=== PATIENT | male | born 1955 ===

== ENCOUNTER 2020-07-20 14:37 | Inpatient (IN) | payer MEDICAID ==
--- NOTE | 2020-07-21 09:51 | History and Physical Report ---
GP History & Physical - History of Present Illness Date of admission: 07/20/20 Date of Examination: 07/21/20 Reason for Admission: Danger to self, Failure of Outpatient Treatment History of Present Illness: Per Admission Note: Patient admitted to to [facility] for protective oversight for emergency stabilization of acute psychiatric crisis. Patient arrived on the unit on 07/20/20 @ 2200. He was escorted by security. Patient was brought to [facility] by his sister due to his threatening her. Patient has a history of paranoid schizophrenia. He has recently been non-compliant with his medications. Patient reports AH but denies si/hi/ah/vh. It is reported he is self harming by hitting his head on marte. During my assessment of 65y/o Kan Leahy, he was sitting in the dayroom off to himself. The patient is a poor historian and has poor insight. He says "he's not feeling good." He was unable to give insight as to why he wasn't feeling well. He is mumbling at times, looking around, and difficult to follow. When asking the patient about his psych history he was unable to tell me. I mentioned schizophrenia to him, he states "I don't know anything about schizophrenia." He says "I didn't take my meds." He then starts mumbling about something I can't make out. The patient denies SI/HI. He does verbalize hallucinations. When asked what were they the patient states "just hearing stuff." He denies illicit drug use, or alcohol. PAST PSYCHIATRIC HISTORY: Diagnoses: schizophrenia Suicide attempts or Self-harm behavior: Denies Prior psychiatric hospitalizations: Denies Substance Abuse history: Denies Previous psychiatric medications tried: Denies Outpatient treatment: Denies PAST MEDICAL HISTORY: None reported Family Psychiatric History: None reported or documented SOCIAL HISTORY Marital Status: single Living Arrangements: sister Employment Status: disabled Access to guns/weapons: Denies Education: History of Abuse: Denies Legal History: Denies REVIEW OF SYSTEMS Constitutional: Negative for weight loss ENT: Negative for stridor Respiratory: Negative for cough or hemoptysis All other systems reviewed and are negative MENTAL STATUS EXAMINATION General Appearance and Behavior: Age appropriate, good hygiene, not wearing appropriate clothes, fair eye contact, calm and cooperative Cooperation: Participating, uncooperative at times Psychomotor Behavior: Psychomotor normal Mood: not good Affect and affective range: Congruent with stated mood Thought Process: illocigal, responding to internal stimuli Speech: mumbling Thought Content Suicidal Ideation: Denies Homicidal Ideation: Denies Hallucinations: auditory Delusions: None elicited Impulse Control: Limited Insight and Judgment: limited insight and judgment Memory: Limited Attention: Divided attention impaired Orientation: A/o x 3 Assessment and Plan (1) Schizophrenia Current Visit: Yes Status: Acute Treatment Plan Patient admitted for inpatient psychiatric evaluation, medication adjustment and close monitoring The patient's behavior, mood, sleep and appetite will be closely monitored. Patient enrolled in individual and group therapeutic sessions and encouraged to attend. Patient provided with a safe and structured environment. Patient's physical health needs will be addressed by the Hospitalist. Hospitalist Consulted Labs including CBC, CMP, Lipid profile and Hemoglobin A1C levels ordered for baseline reference Social Assessment will be completed and the Basic Sciences Dean will work with patient and family to ensure a suitable and safe disposition Medication adjustment will be made as clinically indicated Start Risperidon 0.25mg po BID Start Trazodone 50mg po qhs Usual Wellness Orthodoxy/Preservation: - Start Trazodone 50 mg po QHS & 50 mg po QHS PRN between 10 PM & 2 AM for insomnia - Start Melatonin 5 mg po QHS to promote circadian rhythm - Start [place]-3 for brain health, reduce impulsivity, and as adjunctive treatment for mood disorder, continue upon discharge given overall benefits. - Start B1 prophylaxis with 200 mg po for 5 days The patient agreed on the treatment plan, understood the risk, benefit, alternative treatment, potential consequence of no treatment, and gave informed consent. Initial Certification I certify that the inpatient psychiatric services are required for treatment that could reasonably be expected to improve the patient's condition for paranoia Estimated days: 5 Post hospital care: primary care provider, psychiatric provider Case staffed with Dr. Jones. Legal Status: Voluntary Reaction to Hospitalization: Accepting Medications and Allergies Allergies Allergy/AdvReac Type Severity Reaction Status Date / Time No Known Allergies Allergy Unverified 07/20/20 16:23 Home Medications Medication Instructions Recorded Confirmed Last Taken Type Aspirin EC [Halfprin EC] 81 mg PO QDAY 07/20/20 07/20/20 Unknown History Atorvastatin [Lipitor Tab] 80 mg PO QHS 07/20/20 07/20/20 Unknown History Clopidogrel [Plavix] 75 mg PO QDAY 07/20/20 07/20/20 Unknown History Fluticasone [Flonase] 2 mcg INNOSTRIL DAILY 07/20/20 07/20/20 Unknown History Mirtazapine [Remeron 15mg TAB] 15 mg PO QHS 07/20/20 07/20/20 Unknown History Spironolactone [Aldactone] 25 mg PO DAILY 07/20/20 07/20/20 Unknown History carvediloL [Coreg] 12.5 mg PO BID 07/20/20 07/20/20 Unknown History lisinopriL [Lisinopril] 40 mg PO DAILY 07/20/20 07/21/20 Unknown History Furosemide [Lasix] 40 mg PO DAILY 07/21/20 07/21/20 Unknown History Metformin HCl [metFORMIN ER 500 mg PO DAILY 07/21/20 07/21/20 Unknown History Osmotic] Mirtazapine [Remeron] 15 mg PO HS 07/21/20 07/21/20 Unknown History Potassium Chloride [Klor-Con M15] 20 meq PO DAILY 07/21/20 07/21/20 Unknown History amLODIPine [Norvasc] 10 mg PO DAILY 07/21/20 07/21/20 Unknown History hydrALAZINE [Apresoline] 25 mg PO BID 07/21/20 07/21/20 Unknown History levoFLOXacin [Levaquin] 750 mg PO QDAY 07/21/20 07/21/20 07/20/20 10:00 History Active Meds: Active Medications Nicotine (Nicotine 21 Mg/24 Hr Patch) 21 mg TD QDAY [place] Results - Results Labs/Vitals: Laboratory Last Values POC Glucose 189 mg/dL (70-105) H 07/21/20 06:32 Last Vital Signs Temp 97.3 F L 07/20/20 22:05 Pulse 70 07/20/20 22:05 Resp 16 07/20/20 22:05 BP 115/70 07/20/20 22:05 Pulse Ox 97 07/20/20 22:05 Physical Examination - Constitutional Vitals: Vital Signs Temp Pulse Resp BP Pulse Ox 97.3 F L 70 16 115/70 97 07/20/20 22:05 07/20/20 22:05 07/20/20 22:05 07/20/20 22:05 07/20/20 22:05 Temperature -Last 24 Hours Temperature 97.3 F Mental Status Exam - Vital signs Last Vital Signs Temp 97.3 F L 07/20/20 22:05 Pulse 70 07/20/20 22:05 Resp 16 07/20/20 22:05 BP 115/70 07/20/20 22:05 Pulse Ox 97 07/20/20 22:05 Physician Certification - Certification Statement Physician Certification Statement: This is an acknowledgement statement that KAN LEAHY is a 65 year old M who requires inpatient psychiatric admission for treatment which could reasonably be expected to improve the patient's condition for Estimated period of time patient will need to remain in the hospital: [ ] Plan for post-hospital care: [ ]
[2020-07-21] MEDS: FUROSEMIDE 40 MG TAB PO SCH (10:50)
[2020-07-21] MEDS: ASPIRIN EC 81 MG TAB PO SCH (10:50)
[2020-07-21] MEDS: POTASSIUM CHLORIDE ER 20 MEQ TAB PO SCH (10:50)
[2020-07-21] MEDS: levoFLOXacin 750 MG TAB PO SCH (10:50)
[2020-07-21] MEDS: NICOTINE 21 MG/24 HR PATCH TD SCH (10:51)
[2020-07-21] MEDS: risperiDONE 0.25 MG TAB PO SCH ×2 (10:51→21:14)
[2020-07-21] MEDS: CLOPIDOGREL 75 MG TAB PO SCH (10:51)
[2020-07-21] MEDS: hydrALAZINE 25 MG TAB PO SCH ×2 (10:52→21:13)
[2020-07-21] MEDS: SPIRONOLACTONE 25 MG TAB PO SCH (10:53)
[2020-07-21] MEDS ORDERED: LISINOPRIL 20 MG TAB PO SCH (11:00)
[2020-07-21] MEDS: FLUTICASONE PROPIONATE NASAL SPRAY 16 GM NS SCH (11:39)
[2020-07-21] MEDS: metFORMIN XR 500MG TAB PO SCH (11:39)
[2020-07-21] MEDS: carvediloL 12.5 MG TAB PO SCH ×2 (11:40→21:13)
[2020-07-21 14:03] LABS: Basophils % (Auto) 0.6 % (0.0-1.8); Eosinophils # (Auto) 0.1 K/mm3 (0.0-0.4); Eosinophils % (Auto) 1.5 % (0.0-4.3); Hematocrit 44.7 % (35.5-45.6); Lymphocytes # (Auto) 1.7 K/mm3 (1.2-5.4); Lymphocytes % (Auto) 29.9 % (13.4-35.0); Mean Corpuscular HGB Conc 34 % (32-34); Mean Corpuscular Volume 92 fl (84-94); Monocytes # (Auto) 0.7 K/mm3 (0.0-0.8); Monocytes % (Auto) 12.2 % (0.0-7.3); Platelet Count 156 K/mm3 (140-440); Red Blood Count 4.84 M/mm3 (3.65-5.03); Red Cell Distribution Width 13.5 % (13.2-15.2)
[2020-07-21 14:13] LABS: Alanine Aminotransferase 17 units/L (7-56); Albumin 3.3 g/dL (3.9-5); BUN/Creatinine Ratio 23; Blood Urea Nitrogen 23 mg/dL (9-20); Calcium 8.8 mg/dL (8.4-10.2); Chol/HDL Ratio 3.15 %; HDL Cholesterol 39 mg/dL (40-59); Hemolysis Index 48; LDL Cholesterol,Direct 57 mg/dL (50-130)
--- NOTE | 2020-07-21 14:20 | Consultation ---
History of Present Illness - Reason for Consult Consult date: 07/21/20 Medical management - History of Present Illness History as per primary 65y/o Kan Brink, he was sitting in the dayroom off to himself. The patient is a poor historian and has poor insight. He says "he's not feeling good." He was unable to give insight as to why he wasn't feeling well. He is mumbling at times, looking around, and difficult to follow. When asking the patient about his psych history he was unable to tell me. I mentioned schizophrenia to him, he states "I don't know anything about schizophrenia." He says "I didn't take my meds." He then starts mumbling about something I can't make out. The patient d enies SI/HI. He does verbalize hallucinations. When asked what were they the patient states "just hearing stuff." He denies illicit drug use, or alcohol. I saw and examined at patient bedside this AM. Patient does not know he did name of his medications nor his medical history He denies any chest pain or palpitations. No reports of shortness of breath On antibiotics for pneumonia Past History Past Medical History: diabetes, heart failure, hypertension, other Past Surgical History: No surgical history, Other (Unknown) Medications and Allergies Allergies Allergy/AdvReac Type Severity Reaction Status Date / Time No Known Allergies Allergy Unverified 07/20/20 16:23 Home Medications Medication Instructions Recorded Confirmed Last Taken Type Aspirin EC [Halfprin EC] 81 mg PO QDAY 07/20/20 07/20/20 Unknown History Atorvastatin [Lipitor Tab] 80 mg PO QHS 07/20/20 07/20/20 Unknown History Clopidogrel [Plavix] 75 mg PO QDAY 07/20/20 07/20/20 Unknown History Fluticasone [Flonase] 2 mcg INNOSTRIL DAILY 07/20/20 07/20/20 Unknown History Mirtazapine [Remeron 15mg TAB] 15 mg PO QHS 07/20/20 07/20/20 Unknown History Spironolactone [Aldactone] 25 mg PO DAILY 07/20/20 07/20/20 Unknown History carvediloL [Coreg] 12.5 mg PO BID 07/20/20 07/20/20 Unknown History lisinopriL [Lisinopril] 40 mg PO DAILY 07/20/20 07/21/20 Unknown History Furosemide [Lasix] 40 mg PO DAILY 07/21/20 07/21/20 Unknown History Metformin HCl [metFORMIN ER 500 mg PO DAILY 07/21/20 07/21/20 Unknown History Osmotic] Mirtazapine [Remeron] 15 mg PO HS 07/21/20 07/21/20 Unknown History Potassium Chloride [Klor-Con M15] 20 meq PO DAILY 07/21/20 07/21/20 Unknown History amLODIPine [Norvasc] 10 mg PO DAILY 07/21/20 07/21/20 Unknown History hydrALAZINE [Apresoline] 25 mg PO BID 07/21/20 07/21/20 Unknown History levoFLOXacin [Levaquin] 750 mg PO QDAY 07/21/20 07/21/20 07/20/20 10:00 History Active Meds: Active Medications Amlodipine Besylate (Amlodipine 10 Mg Tab) 10 mg PO DAILY [facility] Aspirin (Aspirin Ec 81 Mg Tab) 81 mg PO QDAY [facility] Last Admin: 07/21/20 10:50 Dose: 81 mg Documented by: Atorvastatin Calcium (Atorvastatin 40 Mg Tab) 80 mg PO QHS [facility] Carvedilol (Carvedilol 12.5 Mg Tab) 12.5 mg PO BID [facility] Last Admin: 07/21/20 11:40 Dose: 12.5 mg Documented by: Clopidogrel Bisulfate (Clopidogrel 75 Mg Tab) 75 mg PO QDAY [facility] Last Admin: 07/21/20 10:51 Dose: 75 mg Documented by: Fluticasone Propionate (Fluticasone Propionate Nasal [place] 16 Gm) 2 mcg NS DAILY [facility] Last Admin: 07/21/20 11:39 Dose: 2 mcg Documented by: Furosemide (Furosemide 40 Mg Tab) 40 mg PO DAILY [facility] Last Admin: 07/21/20 10:50 Dose: 40 mg Documented by: Hydralazine HCl (Hydralazine 25 Mg Tab) 25 mg PO BID [facility] Last Admin: 07/21/20 10:52 Dose: 25 mg Documented by: Levofloxacin (Levofloxacin 750 Mg Tab) 750 mg PO QDAY [facility]; Protocol Last Admin: 07/21/20 10:50 Dose: 750 mg Documented by: Lisinopril (Lisinopril 20 Mg Tab) 40 mg PO DAILY [facility] Metformin HCl (Metformin Xr 500mg Tab) 500 mg PO DAILY [facility] Last Admin: 07/21/20 11:39 Dose: 500 mg Documented by: Mirtazapine (Mirtazapine 15 Mg Tab) 15 mg PO QHS [facility] Nicotine (Nicotine 21 Mg/24 Hr Patch) 21 mg TD QDAY [facility] Last Admin: 07/21/20 10:51 Dose: 21 mg Documented by: Potassium Chloride (Potassium Chloride Er 20 Meq Tab) 20 meq PO DAILY [facility] Last Admin: 07/21/20 10:50 Dose: 20 meq Documented by: Risperidone (Risperidone 0.25 Mg Tab) 0.25 mg PO BID [facility] Last Admin: 07/21/20 10:51 Dose: 0.25 mg Documented by: Spironolactone (Spironolactone 25 Mg Tab) 25 mg PO DAILY [facility] Last Admin: 07/21/20 10:53 Dose: 25 mg Documented by: Trazodone HCl (Trazodone 50 Mg Tab) 50 mg PO QHS [facility] Review of Systems All systems: negative Exam - Physical Exam Narrative exam: VITAL SIGNS: Reviewed. GENERAL: Awake HEAD: No signs of head trauma. EYES: Pupils are equal. Extraocular motions intact. MOUTH: Oropharynx is normal. NECK: No adenopathy, no JVD. CHEST: Chest with diminished breath sounds bilaterally. No wheezes, rales, or rhonchi. CARDIAC: normal S1 and S2, without murmurs, gallops, or rubs. ABDOMEN: Soft, non tender and non distended. No rebound or guarding, and no masses palpated. Bowel Sounds normal. MUSCULOSKELETAL: No edema NEUROLOGIC EXAM: Alert and oriented x3. No focal neurologic deficits SKIN: No obvious lesions - Constitutional Vitals: Temp Pulse Resp BP Pulse Ox 97.3 F L 70 16 115/70 97 07/20/20 22:05 07/21/20 11:40 07/20/20 22:05 07/21/20 11:40 07/20/20 22:05 Results - Labs CBC & Chem 7: 07/21/20 13:36 07/21/20 13:36 Labs: Abnormal lab results 07/21/20 07/21/20 07/21/20 Range/Units 06:32 13:36 13:36 [place] % (Auto) 12.2 H (0.0-7.3) % Sodium 128 L (137-145) mmol/L BUN 23 H (9-20) mg/dL Glucose 164 H (75-100) mg/dL POC Glucose 189 H (70-105) mg/dL Hemoglobin A1c (4-6) % Albumin 3.3 L (3.9-5) g/dL Triglycerides 286 H (2-149) mg/dL HDL Cholesterol 39 L (40-59) mg/dL 07/21/20 Range/Units 13:36 [place] % (Auto) (0.0-7.3) % Sodium (137-145) mmol/L BUN (9-20) mg/dL Glucose (75-100) mg/dL POC Glucose (70-105) mg/dL Hemoglobin A1c 6.3 H (4-6) % Albumin (3.9-5) g/dL Triglycerides (2-149) mg/dL HDL Cholesterol (40-59) mg/dL Assessment and Plan - Patient Problems (1) Schizophrenia Current Visit: Yes Status: Acute Plan to address problem: Management of psych conditions as per psychiatry team (2) Hypertension Current Visit: Yes Status: Acute Plan to address problem: Continue blood pressure medications (3) Hyperlipidemia Current Visit: Yes Status: Acute Plan to address problem: Stable (4) Congestive heart failure Current Visit: Yes Status: Acute Plan to address problem: Continue rest of home medications (5) Diabetes mellitus Current Visit: Yes Status: Acute Plan to address problem: Continue Metformin (6) Hyponatremia Current Visit: Yes Status: Acute Plan to address problem: Continue to trend sodium. Repeat BMP in a.m.
[2020-07-21] MEDS: traZODone 50 MG TAB PO SCH (21:14)
[2020-07-21] MEDS: MIRTAZAPINE 15 MG TAB PO SCH (21:14)
[2020-07-21] MEDS ORDERED: MIRTAZAPINE 15 MG TAB PO SCH (22:00)
--- NOTE | 2020-07-22 09:05 | Progress Note ---
Subjective Date of service: 07/22/20 Principal diagnosis: schizophrenia Subjective Comment: Per Nurse Note: pt spent the evening in activity room sitting in chaparrita chair, withdrawn to self, no interaction with peer, observed talking to himself, calm and cooperative, able to make needs known, medication compliant, good appetite, slept all night, no distress noted, will continue to monitor for safety. The patient was seen today. He is lying down awake. He's more easy to follow today. He says he slept well. The patient says he's doing "alright" when asked. When asked about any hallucinations, he replies "no more than what nobody else hear." He denies SI/HI or any kind. Reason for continued inpatient treatment: The patient is observed hallucinating REVIEW OF SYSTEMS Constitutional: Negative for weight loss ENT: Negative for stridor Respiratory: Negative for cough or hemoptysis All other systems reviewed and are negative MENTAL STATUS EXAMINATION General Appearance and Behavior: Age appropriate, good hygiene, not wearing appropriate clothes, fair eye contact, calm and cooperative Cooperation: Participating, uncooperative at times Psychomotor Behavior: Psychomotor normal Mood: not good Affect and affective range: Congruent with stated mood Thought Process: illocigal, responding to internal stimuli Speech: mumbling Thought Content Suicidal Ideation: Denies Homicidal Ideation: Denies Hallucinations: auditory Delusions: None elicited Impulse Control: Limited Insight and Judgment: limited insight and judgment Memory: Limited Attention: Divided attention impaired Orientation: A/o x 3 Assessment and Plan (1) Schizophrenia Current Visit: Yes Status: Acute Treatment Plan Patient admitted for inpatient psychiatric evaluation, medication adjustment and close monitoring The patient's behavior, mood, sleep and appetite will be closely monitored. Patient enrolled in individual and group therapeutic sessions and encouraged to attend. Patient provided with a safe and structured environment. Patient's physical health needs will be addressed by the Hospitalist. Hospitalist Consulted Labs including CBC, CMP, Lipid profile and Hemoglobin A1C levels ordered for baseline reference Social Assessment will be completed and the Energy Crop Farmer will work with patient and family to ensure a suitable and safe disposition Medication adjustment will be made as clinically indicated Increase Risperidon 0.5mg po BID Usual Wellness Anabaptism/Preservation: - Start Trazodone 50 mg po QHS & 50 mg po QHS PRN between 10 PM & 2 AM for insomnia - Start Melatonin 5 mg po QHS to promote circadian rhythm - Start [place]-3 for brain health, reduce impulsivity, and as adjunctive treatment for mood disorder, continue upon discharge given overall benefits. - Start B1 prophylaxis with 200 mg po for 5 days The patient agreed on the treatment plan, understood the risk, benefit, alternative treatment, potential consequence of no treatment, and gave informed consent. Post hospital care: primary care provider, psychiatric provider Case staffed with Dr. Jones. Medications and Allergies Allergies Allergy/AdvReac Type Severity Reaction Status Date / Time No Known Allergies Allergy Unverified 07/20/20 16:23 Home Medications Medication Instructions Recorded Confirmed Last Taken Type Aspirin EC [Halfprin EC] 81 mg PO QDAY 07/20/20 07/20/20 Unknown History Atorvastatin [Lipitor Tab] 80 mg PO QHS 07/20/20 07/20/20 Unknown History Clopidogrel [Plavix] 75 mg PO QDAY 07/20/20 07/20/20 Unknown History Fluticasone [Flonase] 2 mcg INNOSTRIL DAILY 07/20/20 07/20/20 Unknown History Mirtazapine [Remeron 15mg TAB] 15 mg PO QHS 07/20/20 07/20/20 Unknown History Spironolactone [Aldactone] 25 mg PO DAILY 07/20/20 07/20/20 Unknown History carvediloL [Coreg] 12.5 mg PO BID 07/20/20 07/20/20 Unknown History lisinopriL [Lisinopril] 40 mg PO DAILY 07/20/20 07/21/20 Unknown History Furosemide [Lasix] 40 mg PO DAILY 07/21/20 07/21/20 Unknown History Metformin HCl [metFORMIN ER 500 mg PO DAILY 07/21/20 07/21/20 Unknown History Osmotic] Mirtazapine [Remeron] 15 mg PO HS 07/21/20 07/21/20 Unknown History Potassium Chloride [Klor-Con M15] 20 meq PO DAILY 07/21/20 07/21/20 Unknown History amLODIPine [Norvasc] 10 mg PO DAILY 07/21/20 07/21/20 Unknown History hydrALAZINE [Apresoline] 25 mg PO BID 07/21/20 07/21/20 Unknown History levoFLOXacin [Levaquin] 750 mg PO QDAY 07/21/20 07/21/20 07/20/20 10:00 History Active Meds: Active Medications Amlodipine Besylate (Amlodipine 10 Mg Tab) 10 mg PO DAILY [facility] Aspirin (Aspirin Ec 81 Mg Tab) 81 mg PO QDAY [facility] Last Admin: 07/21/20 10:50 Dose: 81 mg Documented by: Atorvastatin Calcium (Atorvastatin 40 Mg Tab) 80 mg PO QHS [facility] Last Admin: 07/21/20 21:14 Dose: 80 mg Documented by: Carvedilol (Carvedilol 12.5 Mg Tab) 12.5 mg PO BID [facility] Last Admin: 07/21/20 21:13 Dose: 12.5 mg Documented by: Clopidogrel Bisulfate (Clopidogrel 75 Mg Tab) 75 mg PO QDAY [facility] Last Admin: 07/21/20 10:51 Dose: 75 mg Documented by: Fluticasone Propionate (Fluticasone Propionate Nasal [place] 16 Gm) 2 mcg NS DAILY [facility] Last Admin: 07/21/20 11:39 Dose: 2 mcg Documented by: Furosemide (Furosemide 40 Mg Tab) 40 mg PO DAILY [facility] Last Admin: 07/21/20 10:50 Dose: 40 mg Documented by: Hydralazine HCl (Hydralazine 25 Mg Tab) 25 mg PO BID [facility] Last Admin: 07/21/20 21:13 Dose: 25 mg Documented by: Levofloxacin (Levofloxacin 750 Mg Tab) 750 mg PO QDAY [facility]; Protocol Stop: 07/28/20 10:01 Last Admin: 07/21/20 10:50 Dose: 750 mg Documented by: Lisinopril (Lisinopril 20 Mg Tab) 40 mg PO DAILY [facility] Last Admin: 07/21/20 16:45 Dose: 40 mg Documented by: Metformin HCl (Metformin Xr 500mg Tab) 500 mg PO DAILY [facility] Last Admin: 07/21/20 11:39 Dose: 500 mg Documented by: Mirtazapine (Mirtazapine 15 Mg Tab) 15 mg PO QHS [facility] Last Admin: 07/21/20 21:14 Dose: 15 mg Documented by: Nicotine (Nicotine 21 Mg/24 Hr Patch) 21 mg TD QDAY [facility] Last Admin: 07/21/20 10:51 Dose: 21 mg Documented by: Potassium Chloride (Potassium Chloride Er 20 Meq Tab) 20 meq PO DAILY [facility] Last Admin: 07/21/20 10:50 Dose: 20 meq Documented by: Risperidone (Risperidone 0.25 Mg Tab) 0.25 mg PO BID [facility] Last Admin: 07/21/20 21:14 Dose: 0.25 mg Documented by: Spironolactone (Spironolactone 25 Mg Tab) 25 mg PO DAILY [facility] Last Admin: 07/21/20 10:53 Dose: 25 mg Documented by: Trazodone HCl (Trazodone 50 Mg Tab) 50 mg PO QHS [facility] Last Admin: 07/21/20 21:14 Dose: 50 mg Documented by: Results - Results Labs/Vitals: Laboratory Last Values WBC 5.8 K/mm3 (4.5-11.0) 07/21/20 13:36 RBC 4.84 M/mm3 (3.65-5.03) 07/21/20 13:36 Hgb 15.0 gm/dl (11.8-15.2) 07/21/20 13:36 Hct 44.7 % (35.5-45.6) 07/21/20 13:36 MCV 92 fl (84-94) 07/21/20 13:36 MCH 31 pg (28-32) 07/21/20 13:36 MCHC 34 % (32-34) 07/21/20 13:36 RDW 13.5 % (13.2-15.2) 07/21/20 13:36 Plt Count 156 K/mm3 (140-440) 07/21/20 13:36 Lymph % (Auto) 29.9 % (13.4-35.0) 07/21/20 13:36 [place] % (Auto) 12.2 % (0.0-7.3) H 07/21/20 13:36 Eos % (Auto) 1.5 % (0.0-4.3) 07/21/20 13:36 Baso % (Auto) 0.6 % (0.0-1.8) 07/21/20 13:36 Lymph # (Auto) 1.7 K/mm3 (1.2-5.4) 07/21/20 13:36 [place] # (Auto) 0.7 K/mm3 (0.0-0.8) 07/21/20 13:36 Eos # (Auto) 0.1 K/mm3 (0.0-0.4) 07/21/20 13:36 Baso # (Auto) 0.0 K/mm3 (0.0-0.1) 07/21/20 13:36 Seg Neutrophils % 55.8 % (40.0-70.0) 07/21/20 13:36 Seg Neutrophils # 3.3 K/mm3 (1.8-7.7) 07/21/20 13:36 Sodium 128 mmol/L (137-145) L 07/21/20 13:36 Potassium 4.3 mmol/L (3.6-5.0) 07/21/20 13:36 Chloride 98.1 mmol/L (98-107) 07/21/20 13:36 Carbon Dioxide 23 mmol/L (22-30) 07/21/20 13:36 Anion Gap 11 mmol/L 07/21/20 13:36 BUN 23 mg/dL (9-20) H 07/21/20 13:36 Creatinine 1.0 mg/dL (0.8-1.3) 07/21/20 13:36 Estimated GFR > 60 ml/min 07/21/20 13:36 BUN/Creatinine Ratio 23 % 07/21/20 13:36 Glucose 164 mg/dL (75-100) H 07/21/20 13:36 POC Glucose 158 mg/dL (70-105) H 07/22/20 06:02 Hemoglobin A1c 6.3 % (4-6) H 07/21/20 13:36 Calcium 8.8 mg/dL (8.4-10.2) 07/21/20 13:36 Total Bilirubin 0.60 mg/dL (0.1-1.2) 07/21/20 13:36 AST 25 units/L (5-40) 07/21/20 13:36 ALT 17 units/L (7-56) 07/21/20 13:36 Alkaline Phosphatase 60 units/L (35-129) 07/21/20 13:36 Total Protein 7.1 g/dL (6.3-8.2) 07/21/20 13:36 Albumin 3.3 g/dL (3.9-5) L 07/21/20 13:36 Albumin/Globulin Ratio 0.9 % 07/21/20 13:36 Triglycerides 286 mg/dL (2-149) H 07/21/20 13:36 Cholesterol 123 mg/dL (50-199) 07/21/20 13:36 LDL Cholesterol Direct 57 mg/dL (50-130) 07/21/20 13:36 HDL Cholesterol 39 mg/dL (40-59) L 07/21/20 13:36 Cholesterol/HDL Ratio 3.15 % 07/21/20 13:36 TSH 2.170 mlU/mL (0.270-4.200) 07/21/20 13:36 Last Vital Signs Temp 97.5 F L 07/21/20 22:00 Pulse 84 07/21/20 22:00 Resp 18 07/21/20 22:00 BP 151/97 07/21/20 22:00 Pulse Ox 100 07/21/20 22:00
[2020-07-22] MEDS: ASPIRIN EC 81 MG TAB PO SCH (09:10)
[2020-07-22] MEDS: SPIRONOLACTONE 25 MG TAB PO SCH (09:13)
[2020-07-22] MEDS: NICOTINE 21 MG/24 HR PATCH TD SCH (09:13)
[2020-07-22] MEDS: amLODIPine 10 MG TAB PO SCH (09:13)
[2020-07-22] MEDS: FLUTICASONE PROPIONATE NASAL SPRAY 16 GM NS SCH (09:14)
[2020-07-22] MEDS: hydrALAZINE 25 MG TAB PO SCH ×2 (09:15→21:13)
[2020-07-22] MEDS: carvediloL 12.5 MG TAB PO SCH ×2 (09:15→21:12)
[2020-07-22] MEDS: FUROSEMIDE 40 MG TAB PO SCH (09:16)
[2020-07-22] MEDS: metFORMIN XR 500MG TAB PO SCH (09:16)
[2020-07-22] MEDS: POTASSIUM CHLORIDE ER 20 MEQ TAB PO SCH (09:18)
[2020-07-22] MEDS: levoFLOXacin 750 MG TAB PO SCH (09:18)
[2020-07-22] MEDS: CLOPIDOGREL 75 MG TAB PO SCH (09:22)
[2020-07-22] MEDS: risperiDONE 0.25 MG TAB PO SCH ×2 (10:30→21:11)
[2020-07-22] MEDS: LISINOPRIL 20 MG TAB PO SCH (14:32)
[2020-07-22] MEDS: traZODone 50 MG TAB PO SCH (21:11)
[2020-07-22] MEDS: MIRTAZAPINE 15 MG TAB PO SCH (21:12)
--- NOTE | 2020-07-23 08:41 | Progress Note ---
Subjective Date of service: 07/23/20 Principal diagnosis: schizophrenia Subjective Comment: Per Nurse Note: Last evening the patient isolated to his room. He could be overheard talking to himself. He denies si/hi. His thought process presents as jumping around with difficulty focusing. He continues to be delusional aeb talking about his computer being infected with covid. His appetite is good and he is medication compliant. Overnight the patient rested quietly. He presents as sleeping 8 hours. Will continue to monitor patient for safety. The patient was seen today. He is awake. He is a little more talkative today. He says he wants to call his sister but she has a new number. The patient says he's doing "alright" when asked. He denies SI/HI or hallucinations of any kind. Reason for continued inpatient treatment: The patient is observed talking to himself and having delusions at times. REVIEW OF SYSTEMS Constitutional: Negative for weight loss ENT: Negative for stridor Respiratory: Negative for cough or hemoptysis All other systems reviewed and are negative MENTAL STATUS EXAMINATION General Appearance and Behavior: Age appropriate, good hygiene, not wearing appropriate clothes, fair eye contact, calm and cooperative Cooperation: Participating, uncooperative at times Psychomotor Behavior: Psychomotor normal Mood: alright Affect and affective range: Congruent with stated mood Thought Process: illocigal Speech: low tone, normal pace Thought Content Suicidal Ideation: Denies Homicidal Ideation: Denies Hallucinations: auditory Delusions: None elicited Impulse Control: Limited Insight and Judgment: limited insight and judgment Memory: Limited Attention: Divided attention impaired Orientation: A/o x 3 Assessment and Plan (1) Schizophrenia Current Visit: Yes Status: Acute Treatment Plan Patient admitted for inpatient psychiatric evaluation, medication adjustment a nd close monitoring The patient's behavior, mood, sleep and appetite will be closely monitored. Patient enrolled in individual and group therapeutic sessions and encouraged to attend. Patient provided with a safe and structured environment. Patient's physical health needs will be addressed by the Hospitalist. Hospitalist Consulted Labs including CBC, CMP, Lipid profile and Hemoglobin A1C levels ordered for baseline reference Social Assessment will be completed and the Bioassayist will work with patient and family to ensure a suitable and safe disposition Medication adjustment will be made as clinically indicated Increase Risperidon 1mg po BID Usual Wellness Mandaeism/Preservation: - Start Trazodone 50 mg po QHS & 50 mg po QHS PRN between 10 PM & 2 AM for insomnia - Start Melatonin 5 mg po QHS to promote circadian rhythm - Start [place]-3 for brain health, reduce impulsivity, and as adjunctive treatment for mood disorder, continue upon discharge given overall benefits. - Start B1 prophylaxis with 200 mg po for 5 days The patient agreed on the treatment plan, understood the risk, benefit, alternative treatment, potential consequence of no treatment, and gave informed consent. Post hospital care: primary care provider, psychiatric provider Case staffed with Dr. Jones. Medications and Allergies Allergies Allergy/AdvReac Type Severity Reaction Status Date / Time No Known Allergies Allergy Unverified 07/20/20 16:23 Home Medications Medication Instructions Recorded Confirmed Last Taken Type Aspirin EC [Halfprin EC] 81 mg PO QDAY 07/20/20 07/20/20 Unknown History Atorvastatin [Lipitor Tab] 80 mg PO QHS 07/20/20 07/20/20 Unknown History Clopidogrel [Plavix] 75 mg PO QDAY 07/20/20 07/20/20 Unknown History Fluticasone [Flonase] 2 mcg INNOSTRIL DAILY 07/20/20 07/20/20 Unknown History Mirtazapine [Remeron 15mg TAB] 15 mg PO QHS 07/20/20 07/20/20 Unknown History Spironolactone [Aldactone] 25 mg PO DAILY 07/20/20 07/20/20 Unknown History carvediloL [Coreg] 12.5 mg PO BID 07/20/20 07/20/20 Unknown History lisinopriL [Lisinopril] 40 mg PO DAILY 07/20/20 07/21/20 Unknown History Furosemide [Lasix] 40 mg PO DAILY 07/21/20 07/21/20 Unknown History Metformin HCl [metFORMIN ER 500 mg PO DAILY 07/21/20 07/21/20 Unknown History Osmotic] Mirtazapine [Remeron] 15 mg PO HS 07/21/20 07/21/20 Unknown History Potassium Chloride [Klor-Con M15] 20 meq PO DAILY 07/21/20 07/21/20 Unknown History amLODIPine [Norvasc] 10 mg PO DAILY 07/21/20 07/21/20 Unknown History hydrALAZINE [Apresoline] 25 mg PO BID 07/21/20 07/21/20 Unknown History levoFLOXacin [Levaquin] 750 mg PO QDAY 07/21/20 07/21/20 07/20/20 10:00 History Active Meds: Active Medications Amlodipine Besylate (Amlodipine 10 Mg Tab) 10 mg PO DAILY [facility] Last Admin: 07/22/20 09:13 Dose: 10 mg Documented by: Aspirin (Aspirin Ec 81 Mg Tab) 81 mg PO QDAY [facility] Last Admin: 07/22/20 09:10 Dose: 81 mg Documented by: Atorvastatin Calcium (Atorvastatin 40 Mg Tab) 80 mg PO QHS [facility] Last Admin: 07/22/20 21:11 Dose: 80 mg Documented by: Carvedilol (Carvedilol 12.5 Mg Tab) 12.5 mg PO BID [facility] Last Admin: 07/22/20 21:12 Dose: 12.5 mg Documented by: Clopidogrel Bisulfate (Clopidogrel 75 Mg Tab) 75 mg PO QDAY [facility] Last Admin: 07/22/20 09:22 Dose: 75 mg Documented by: Fluticasone Propionate (Fluticasone Propionate Nasal [place] 16 Gm) 2 mcg NS DAILY [facility] Last Admin: 07/22/20 09:14 Dose: 2 mcg Documented by: Furosemide (Furosemide 40 Mg Tab) 40 mg PO DAILY [facility] Last Admin: 07/22/20 09:16 Dose: 40 mg Documented by: Hydralazine HCl (Hydralazine 25 Mg Tab) 25 mg PO BID [facility] Last Admin: 07/22/20 21:13 Dose: 25 mg Documented by: Levofloxacin (Levofloxacin 750 Mg Tab) 750 mg PO QDAY [facility]; Protocol Stop: 07/28/20 10:01 Last Admin: 07/22/20 09:18 Dose: 750 mg Documented by: Lisinopril (Lisinopril 20 Mg Tab) 40 mg PO Q24H [facility] Last Admin: 07/22/20 14:32 Dose: 40 mg Documented by: Metformin HCl (Metformin Xr 500mg Tab) 500 mg PO DAILY [facility] Last Admin: 07/22/20 09:16 Dose: 500 mg Documented by: Mirtazapine (Mirtazapine 15 Mg Tab) 15 mg PO QHS [facility] Last Admin: 07/22/20 21:12 Dose: 15 mg Documented by: Nicotine (Nicotine 21 Mg/24 Hr Patch) 21 mg TD QDAY [facility] Last Admin: 07/22/20 09:13 Dose: 21 mg Documented by: Potassium Chloride (Potassium Chloride Er 20 Meq Tab) 20 meq PO DAILY [facility] Last Admin: 07/22/20 09:18 Dose: 20 meq Documented by: Risperidone (Risperidone 0.25 Mg Tab) 0.5 mg PO BID [facility] Last Admin: 07/22/20 21:11 Dose: 0.5 mg Documented by: Spironolactone (Spironolactone 25 Mg Tab) 25 mg PO DAILY [facility] Last Admin: 07/22/20 09:13 Dose: 25 mg Documented by: Trazodone HCl (Trazodone 50 Mg Tab) 50 mg PO QHS [facility] Last Admin: 07/22/20 21:11 Dose: 50 mg Documented by: Results - Results Labs/Vitals: Laboratory Last Values WBC 5.8 K/mm3 (4.5-11.0) 07/21/20 13:36 RBC 4.84 M/mm3 (3.65-5.03) 07/21/20 13:36 Hgb 15.0 gm/dl (11.8-15.2) 07/21/20 13:36 Hct 44.7 % (35.5-45.6) 07/21/20 13:36 MCV 92 fl (84-94) 07/21/20 13:36 MCH 31 pg (28-32) 07/21/20 13:36 MCHC 34 % (32-34) 07/21/20 13:36 RDW 13.5 % (13.2-15.2) 07/21/20 13:36 Plt Count 156 K/mm3 (140-440) 07/21/20 13:36 Lymph % (Auto) 29.9 % (13.4-35.0) 07/21/20 13:36 [place] % (Auto) 12.2 % (0.0-7.3) H 07/21/20 13:36 Eos % (Auto) 1.5 % (0.0-4.3) 07/21/20 13:36 Baso % (Auto) 0.6 % (0.0-1.8) 07/21/20 13:36 Lymph # (Auto) 1.7 K/mm3 (1.2-5.4) 07/21/20 13:36 [place] # (Auto) 0.7 K/mm3 (0.0-0.8) 07/21/20 13:36 Eos # (Auto) 0.1 K/mm3 (0.0-0.4) 07/21/20 13:36 Baso # (Auto) 0.0 K/mm3 (0.0-0.1) 07/21/20 13:36 Seg Neutrophils % 55.8 % (40.0-70.0) 07/21/20 13:36 Seg Neutrophils # 3.3 K/mm3 (1.8-7.7) 07/21/20 13:36 Sodium 128 mmol/L (137-145) L 07/21/20 13:36 Potassium 4.3 mmol/L (3.6-5.0) 07/21/20 13:36 Chloride 98.1 mmol/L (98-107) 07/21/20 13:36 Carbon Dioxide 23 mmol/L (22-30) 07/21/20 13:36 Anion Gap 11 mmol/L 07/21/20 13:36 BUN 23 mg/dL (9-20) H 07/21/20 13:36 Creatinine 1.0 mg/dL (0.8-1.3) 07/21/20 13:36 Estimated GFR > 60 ml/min 07/21/20 13:36 BUN/Creatinine Ratio 23 % 07/21/20 13:36 Glucose 164 mg/dL (75-100) H 07/21/20 13:36 POC Glucose 158 mg/dL (70-105) H 07/22/20 06:02 Hemoglobin A1c 6.3 % (4-6) H 07/21/20 13:36 Calcium 8.8 mg/dL (8.4-10.2) 07/21/20 13:36 Total Bilirubin 0.60 mg/dL (0.1-1.2) 07/21/20 13:36 AST 25 units/L (5-40) 07/21/20 13:36 ALT 17 units/L (7-56) 07/21/20 13:36 Alkaline Phosphatase 60 units/L (35-129) 07/21/20 13:36 Total Protein 7.1 g/dL (6.3-8.2) 07/21/20 13:36 Albumin 3.3 g/dL (3.9-5) L 07/21/20 13:36 Albumin/Globulin Ratio 0.9 % 07/21/20 13:36 Triglycerides 286 mg/dL (2-149) H 07/21/20 13:36 Cholesterol 123 mg/dL (50-199) 07/21/20 13:36 LDL Cholesterol Direct 57 mg/dL (50-130) 07/21/20 13:36 HDL Cholesterol 39 mg/dL (40-59) L 07/21/20 13:36 Cholesterol/HDL Ratio 3.15 % 07/21/20 13:36 TSH 2.170 mlU/mL (0.270-4.200) 07/21/20 13:36 Last Vital Signs Temp 97.6 F 07/22/20 22:00 Pulse 84 07/22/20 23:57 Resp 18 07/22/20 22:00 BP 130/86 07/22/20 22:00 Pulse Ox 96 07/22/20 22:00
[2020-07-23] MEDS: POTASSIUM CHLORIDE ER 20 MEQ TAB PO SCH (09:22)
[2020-07-23] MEDS: NICOTINE 21 MG/24 HR PATCH TD SCH (09:22)
[2020-07-23] MEDS: SPIRONOLACTONE 25 MG TAB PO SCH (09:22)
[2020-07-23] MEDS: FUROSEMIDE 40 MG TAB PO SCH (09:22)
[2020-07-23] MEDS: hydrALAZINE 25 MG TAB PO SCH ×2 (09:22→22:11)
[2020-07-23] MEDS: CLOPIDOGREL 75 MG TAB PO SCH (09:22)
[2020-07-23] MEDS: amLODIPine 10 MG TAB PO SCH (09:22)
[2020-07-23] MEDS: risperiDONE 1 MG TAB PO SCH ×2 (09:22→22:11)
[2020-07-23] MEDS: FLUTICASONE PROPIONATE NASAL SPRAY 16 GM NS SCH (09:23)
[2020-07-23] MEDS: carvediloL 12.5 MG TAB PO SCH ×2 (09:23→22:12)
[2020-07-23] MEDS: metFORMIN XR 500MG TAB PO SCH (09:23)
[2020-07-23] MEDS: levoFLOXacin 750 MG TAB PO SCH (09:23)
[2020-07-23] MEDS: ASPIRIN EC 81 MG TAB PO SCH (09:24)
[2020-07-23 10:25] LABS: BUN/Creatinine Ratio 23; Blood Urea Nitrogen 21 mg/dL (9-20); Calcium 8.9 mg/dL (8.4-10.2); Hemolysis Index 6
[2020-07-23] MEDS: LISINOPRIL 20 MG TAB PO SCH (14:11)
[2020-07-23] MEDS: MIRTAZAPINE 15 MG TAB PO SCH (22:11)
[2020-07-23] MEDS: traZODone 50 MG TAB PO SCH (22:11)
[2020-07-24 09:04] VITALS: BP 130/88
--- NOTE | 2020-07-24 09:41 | Discharge Summary ---
Providers - Providers Date of Admission: 07/20/20 23:54 Date of discharge: 07/24/20 Attending physician: INGRID RAINEY MD 07/20/20 15:29 Consult to Physician [CONS] Routine Comment: Consulting Provider: TOBI SHERMAN Physician Instructions: Reason For Exam: manage medical conditions Primary care physician: GLASS ETCHER HELPER Hospitalization Reason for admission: psychosis Admitting Diagnosis: F20.9 - SCHIZOPHRENIA, UNSPECIFIED Hospital course: The patient was provided inpatient psychiatric treatment with safe and supportive care, medication adjustment, adverse effect monitoring, medical evaluations, medical treatments, assessment and psycho-education. The patient's mood, cognition, behavior, moral support are improved and stabilized. St the time of discharge, the patient had no endangering behavior and no debilitating adverse effects. The patient agreed on potential consequences of no treatment an d gave informed consent. Disposition: DC- TO HOME OR SELFCARE Time spent for discharge: 38 Allergies/Adverse Reactions: Allergies No Known Allergies Allergy (Unverified 07/20/20 16:23) Vital Signs: Last Vital Signs Temp 97.1 F L 07/24/20 07:45 Pulse 80 07/24/20 07:45 Resp 18 07/24/20 07:45 BP 130/88 07/24/20 07:45 Pulse Ox 98 07/24/20 07:45 Last Lab: Laboratory Last Values WBC 5.8 K/mm3 (4.5-11.0) 07/21/20 13:36 RBC 4.84 M/mm3 (3.65-5.03) 07/21/20 13:36 Hgb 15.0 gm/dl (11.8-15.2) 07/21/20 13:36 Hct 44.7 % (35.5-45.6) 07/21/20 13:36 MCV 92 fl (84-94) 07/21/20 13:36 MCH 31 pg (28-32) 07/21/20 13:36 MCHC 34 % (32-34) 07/21/20 13:36 RDW 13.5 % (13.2-15.2) 07/21/20 13:36 Plt Count 156 K/mm3 (140-440) 07/21/20 13:36 Lymph % (Auto) 29.9 % (13.4-35.0) 07/21/20 13:36 [place] % (Auto) 12.2 % (0.0-7.3) H 07/21/20 13:36 Eos % (Auto) 1.5 % (0.0-4.3) 07/21/20 13:36 Baso % (Auto) 0.6 % (0.0-1.8) 07/21/20 13:36 Lymph # (Auto) 1.7 K/mm3 (1.2-5.4) 07/21/20 13:36 [place] # (Auto) 0.7 K/mm3 (0.0-0.8) 07/21/20 13:36 Eos # (Auto) 0.1 K/mm3 (0.0-0.4) 07/21/20 13:36 Baso # (Auto) 0.0 K/mm3 (0.0-0.1) 07/21/20 13:36 Seg Neutrophils % 55.8 % (40.0-70.0) 07/21/20 13:36 Seg Neutrophils # 3.3 K/mm3 (1.8-7.7) 07/21/20 13:36 Sodium 132 mmol/L (137-145) L 07/23/20 09:25 Potassium 3.8 mmol/L (3.6-5.0) 07/23/20 09:25 Chloride 99.9 mmol/L (98-107) 07/23/20 09:25 Carbon Dioxide 23 mmol/L (22-30) 07/23/20 09:25 Anion Gap 13 mmol/L 07/23/20 09:25 BUN 21 mg/dL (9-20) H 07/23/20 09:25 Creatinine 0.9 mg/dL (0.8-1.3) 07/23/20 09:25 Estimated GFR > 60 ml/min 07/23/20 09:25 BUN/Creatinine Ratio 23 % 07/23/20 09:25 Glucose 275 mg/dL (75-100) H 07/23/20 09:25 POC Glucose 164 mg/dL (70-105) H 07/23/20 06:14 Hemoglobin A1c 6.3 % (4-6) H 07/21/20 13:36 Calcium 8.9 mg/dL (8.4-10.2) 07/23/20 09:25 Total Bilirubin 0.60 mg/dL (0.1-1.2) 07/21/20 13:36 AST 25 units/L (5-40) 07/21/20 13:36 ALT 17 units/L (7-56) 07/21/20 13:36 Alkaline Phosphatase 60 units/L (35-129) 07/21/20 13:36 Total Protein 7.1 g/dL (6.3-8.2) 07/21/20 13:36 Albumin 3.3 g/dL (3.9-5) L 07/21/20 13:36 Albumin/Globulin Ratio 0.9 % 07/21/20 13:36 Triglycerides 286 mg/dL (2-149) H 07/21/20 13:36 Cholesterol 123 mg/dL (50-199) 07/21/20 13:36 LDL Cholesterol Direct 57 mg/dL (50-130) 07/21/20 13:36 HDL Cholesterol 39 mg/dL (40-59) L 07/21/20 13:36 Cholesterol/HDL Ratio 3.15 % 07/21/20 13:36 TSH 2.170 mlU/mL (0.270-4.200) 07/21/20 13:36 Core Measure Documentation - Palliative Care Palliative Care/ Comfort Measures: Not Applicable - Core Measures Any of the following diagnoses?: none Exam - Constitutional Vitals: Temp Pulse Resp BP Pulse Ox 97.1 F L 80 18 130/88 98 07/24/20 07:45 07/24/20 07:45 07/24/20 07:45 07/24/20 07:45 07/24/20 07:45 General appearance: Present: no acute distress - EENT Eyes: Present: PERRL, EOM intact ENT: hearing intact, clear oral mucosa - Neck Neck: Present: supple, normal ROM - Respiratory Respiratory effort: normal Plan Activity: advance as tolerated Weight Bearing Status: Weight Bear as Tolerated Care Plan Goals: Maintain good and stable mental health Plan of Treatment: The patient should be compliant with medications, not to use drugs, and not to drink alcohol. The patient understands that if suicidal ideas, homicidal ideas or any endangering feeling arise, the patient should seek assistance including, but not limited to crisis hotline, and emergency room. Health Concerns: HTN, Hyperlipdemia Assessment: Schizophrenia Follow up with: NABIL FLORENCE MD [Primary Care Provider] - 7 Days Prescriptions: risperiDONE [RisperDAL] 1 mg PO BID #60 tablet
[2020-07-24] MEDS: levoFLOXacin 750 MG TAB PO SCH (09:51)
[2020-07-24] MEDS: SPIRONOLACTONE 25 MG TAB PO SCH (09:51)
[2020-07-24] MEDS: CLOPIDOGREL 75 MG TAB PO SCH (09:51)
[2020-07-24] MEDS: carvediloL 12.5 MG TAB PO SCH (09:52)
[2020-07-24] MEDS: FUROSEMIDE 40 MG TAB PO SCH (09:52)
[2020-07-24] MEDS: amLODIPine 10 MG TAB PO SCH (09:52)
[2020-07-24] MEDS: risperiDONE 1 MG TAB PO SCH (09:52)
[2020-07-24] MEDS: NICOTINE 21 MG/24 HR PATCH TD SCH (09:52)
[2020-07-24] MEDS: ASPIRIN EC 81 MG TAB PO SCH (09:52)
[2020-07-24] MEDS: hydrALAZINE 25 MG TAB PO SCH (09:52)
[2020-07-24] MEDS: metFORMIN XR 500MG TAB PO SCH (09:53)
[2020-07-24] MEDS: POTASSIUM CHLORIDE ER 20 MEQ TAB PO SCH (09:53)
[2020-07-24] MEDS: FLUTICASONE PROPIONATE NASAL SPRAY 16 GM NS SCH (09:53)
== END 2020-07-24 12:20 | disposition home or self-care (01) | DRG 885 ==
LOC: 3A 14:37 → UNDOADMIN 14:37 → 5A 23:54
PROVIDERS: ADMIT Psychiatry & Neurology Psychiatry; ATTEND Psychiatry & Neurology Psychiatry
DX: F20.9 Schizophrenia, unspecified (principal); E87.1 Hypo-osmolality and hyponatremia; I50.9 Heart failure, unspecified; E11.9 Type 2 diabetes mellitus without complications; I11.0 Hypertensive heart disease with heart failure; E78.5 Hyperlipidemia, unspecified
CPT/HCPCS: 36415; 80048; 80053; 80061; 82962; 83036; 84443; 85025; G0378; A9270-GY